=== PATIENT | male | born 1945 | race Caucasian/White ===

== ENCOUNTER 2020-01-10 16:40 | Emergency (ER) | payer MEDICARE, SELFPAY ==
--- NOTE | 2020-01-10 19:53 | RAD ---
CERVICAL SPINE: Date: 01-10-2020 FINDINGS: AP, lateral, and swimmer's views were provided. Originally, a CT was ordered but the patient is monalisa trophobic and refused. The C7 vertebra is never seen adequately in spite of several attempts. No fracture or dislocation was seen. There is reversal of the normal cervical lordosis in the low cervical region. The disc spaces seem normal in height and the C1-2 dens distance is normal. The soft tissues are normal in thickness. There is ossification at the tip of the spinus process of C7 which may be from an old injury, but i t is certainly not acute. IMPRESSION: Suboptimal study but no definite acute findings. POS: HOME
== END 2020-01-10 18:04 | disposition home or self-care (01) ==
LOC: BURERS 16:40
DX: S16.1XXA Strain of muscle, fascia and tendon at neck level, initial encounter (principal); M19.90 Unspecified osteoarthritis, unspecified site; M25.552 Pain in left hip; I25.10 Atherosclerotic heart disease of native coronary artery without angina pectoris; I11.0 Hypertensive heart disease with heart failure; I50.9 Heart failure, unspecified; E03.9 Hypothyroidism, unspecified; E78.5 Hyperlipidemia, unspecified; Z87.891 Personal history of nicotine dependence; Z79.899 Other long term (current) drug therapy; Z79.84 Long term (current) use of oral hypoglycemic drugs; Z79.82 Long term (current) use of aspirin; V49.9XXA Car occupant (driver) (passenger) injured in unspecified traffic accident, initial encounter
CPT/HCPCS: 72040